=== PATIENT | female | born 1945 | race Caucasian/White ===

== ENCOUNTER 2020-04-18 10:10 | Outpatient (CLI) | payer MEDICARE, SELFPAY ==
[2020-04-18 10:36] LABS: Basophils Absolute Auto 0.1 K/mm3 (0.0-0.1); Basophils Percent Auto 0.7 % (0.2-1.2); Eosinophils Absolute Auto 0.4 K/mm3 (0-0.3); Eosinophils Percent Auto 5.1 % (0-4.4); Hematocrit 41.5 % (37.0-47.0); Hemoglobin 13.6 g/dL (12.0-15.0); Immature Granulocyte Absolute 0.01 K/mm3 (0.00-0.031); Immature Granulocyte Percent A 0.1 % (0-0.5); Lymphocytes Absolute Auto 2.08 K/mm3 (0.9-3.2); Lymphocytes Percent Auto 27.7 % (18.3-44.2); Mean Corpuscular HGB Conc 32.8 g/dl (32-36); Mean Corpuscular Hemoglobin 32.1 pg (26-34); Mean Corpuscular Volume 97.9 fl (80-100); Mean Platelet Volume 9.5 fl (7.4-10.4); Monocytes Absolute Auto 0.6 K/mm3 (0.1-0.6); Neutrophils Absolute Auto 4.4 K/mm3 (1.3-6.7); Neutrophils Percent Auto 58.4 % (45.5-73.1); Platelet Count Result 288 k/mm3 (150-375); Red Blood Count 4.24 M/mm3 (4.2-5.4); White Blood Count 7.5 K/mm3 (4.5-10.0)
[2020-04-18 10:49] LABS: Alanine Aminotransferase 26 U/L (4-35); Albumin Level 4.1 g/dL (3.5-5.1); Alkaline Phosphatase 87 U/L (38-126); Anion Gap 12.5 mmol/L (7-16); Aspartate Amino Transferase 35 U/L (14-36); Bilirubin,Total 0.4 mg/dL (0.2-1.3); Blood Urea Nitrogen 12 mg/dL (7-17); Calcium 8.9 mg/dL (8.4-10.2); Carbon Dioxide 26 mmol/L (22-30); Chloride 101 mmol/L (98-107); Cholesterol 110 mg/dL (0-200); Estimated Glomerular Filt Rate > 60; Glucose 109 mg/dL (65-105); HDL Direct 61 mg/dL; Potassium 4.5 mmol/L (3.4-5.0); Sodium 135 mmol/L (137-145); Triglycerides 66 mg/dL (<150)
[2020-04-18 11:00] LABS: LDL Cholesterol Direct 31 mg/dL
[2020-04-18 11:10] LABS: MALB Creatinine Ratio 16.2 mg/g (0-30); Microalbumin Urine Random 10.7 mg/L (0-16.7)
[2020-04-18 11:23] LABS: Vitamin D 25 Hydroxy 44.5 ng/mL
== END 2020-04-18 10:11 | disposition home or self-care (01) ==
LOC: ANHLAB 10:11
PROVIDERS: PCP Internal Medicine; Visit Provider Internal Medicine
DX: E55.9 Vitamin D deficiency, unspecified (principal); F41.1 Generalized anxiety disorder; I10 Essential (primary) hypertension; E78.5 Hyperlipidemia, unspecified
CPT/HCPCS: 36415; 80053; 80061; 82043; 82306; 84443; 85025

== ENCOUNTER → 2020-04-23 09:46 | Outpatient (CLI) | payer MEDICARE, SELFPAY ==
--- NOTE | ~2020-04-23 | MR_ITS ---
EXAMINATION: MR lumbar spine wo [facility] EXAM DATE: 04/23/2020 10:46 INDICATION: Low back pain. Compression fractures. TECHNIQUE: Multi-sequential, multiplanar MR images of the lumbar spine were obtained without contrast . Sagittal T1, T2, T2 fat saturation images. Axial T2 weighted images. Comparison is made to prior examination from 04/10/2019. FINDINGS: There is been interval vertebroplasty at previously seen L1 mild to moderate compression fr acture. Probable methyl methacrylate injection into right side of the sacrum as well. There has been interval development of moderate central compression of the L3 vertebral body, probably subacute give n the mild edema within this level. Mild loss of the L2, L4 and L5 vertebral bodies. Mild to moderate chronic anterior wedging of T11. Mild to moderate lower thoracic dextroscoliosis, lumbar levoscolios is. There is 6 mm anterolisthesis L5 on S1 without spondylolysis. Moderate to severe disc disease L4- 5 and L5-S1, moderate at the levels above. The conus medullaris terminates at the L2-3 level and has normal signal intensity and morphology. Level by level evaluation: T11-12: There is a mild diffuse disc bulge. Facet arthropathy: Mild. Neural foraminal stenosis: Mild left. Central canal stenosis: No stenosis. T12-L1: There is a mild diffuse disc bulge. Facet arthropathy: Mild. Neural foraminal stenosis: No stenosis. Central canal stenosis: No stenosis. L1-L2: There is a minimal diffuse disc bulge. Facet arthropathy: Mild. Neural foraminal stenosis: No stenosis. Central canal stenosis: No stenosis. L2-L3: There is a mild diffuse disc bulge. Facet arthropathy: Mild. Neural foraminal stenosis: Mild right. Central canal stenosis: No stenosis. L3-L4: There is a mild to moderate diffuse disc bulge. Facet arthropathy: Mild to moderate. Neural foraminal stenosis: Moderate right, mild to moderate left. Central canal stenosis: Mild. L4-L5: There is a mild diffuse disc bulge. Facet arthropathy: Mild. Neural foraminal stenosis: Moderate right, mild to moderate left. Central canal stenosis: No stenosis. L5-S1: There is a mild diffuse disc bulge. Facet arthropathy: Moderate. Neural foraminal stenosis: Moderate to severe bilateral. Central canal stenosis: Mild. Compared to last year, development of the L3 compression fracture. Interval treatment of the L1 compr ession fracture. Difficult to appreciate any significant interval change in spondylosis. IMPRESSION: 1. Subacute appearing L3 mild to moderate compression fracture. 2. Chronic, treated L1 compression fracture. 3. Moderate to severe lower lumbar disc disease and L5-S1 neural foraminal stenosis. 4. Lesser spondylosis other levels. Reviewed, dictated and finalized at location A. IMPRESSION: 1. Subacute appearing L3 mild to moderate compression fracture. 2. Chronic, treated L1 compression fracture. 3. Moderate to severe lower lumbar disc disease and L5-S1 neural foraminal brandon nosis. 4. Lesser spondylosis other levels.
== END ==
PROVIDERS: Visit Provider Nurse Practitioner Adult Health
DX: S32.000A Wedge compression fracture of unspecified lumbar vertebra, initial encounter for closed fracture (principal); M51.86 Other intervertebral disc disorders, lumbar region; M47.816 Spondylosis without myelopathy or radiculopathy, lumbar region
CPT/HCPCS: 72148

== ENCOUNTER → 2020-07-07 11:17 | Outpatient (CLI) | payer MEDICARE, SELFPAY ==
--- NOTE | ~2020-07-07 | XR_ITS ---
XR knee RT 2V, XR knee LT 2V 07/07/2020 11:52 Indication: Bilateral knee pain Procedure: 2 views each knee Comparison: No prior studies for comparison. Findings: No fracture or traumatic malalignment. No significant joint effusion. No radiopaque foreign bodies. There is chondrocalcinosis. There is mild osteoarthritis. 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 Reviewed, dictated and finalized at location B. 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
== END ==
PROVIDERS: PCP Orthopaedic Surgery
DX: M25.562 Pain in left knee (principal); M25.561 Pain in right knee; M17.0 Bilateral primary osteoarthritis of knee; M94.261 Chondromalacia, right knee; M94.262 Chondromalacia, left knee
CPT/HCPCS: 73560

== ENCOUNTER 2020-07-18 08:01 | Outpatient (CLI) | payer MEDICARE, SELFPAY ==
[2020-07-18 08:00] VITALS: PULSE 81; O2SAT 94
[2020-07-18 08:05] VITALS: PULSE 92; O2SAT 83
[2020-07-18 08:10] VITALS: PULSE 95; O2SAT 85
[2020-07-18 08:15] VITALS: O2SAT 87
[2020-07-18 08:20] VITALS: PULSE 97; O2SAT 90
[2020-07-18 08:45] VITALS: PULSE 82; O2SAT 94
--- NOTE | 2020-07-18 09:48 | HOMEO2EVAL ---
Home Oxygen Evaluation RC: Home Oxygen (O2) Evaluation Start: 07/18/20 09:43 Freq: Status: Active Protocol: RPE Activity Type Activity Date Activity User E-Sign Co-Sign Detail Recorded Client Recorded Date Recorded By Document 07/18/20 08:00 [email or web address] [id number] 07/18/20 09:48 DJO Document 07/18/20 08:05 [email or web address] [email or web address] 07/18/20 09:48 DJO Document 07/18/20 08:10 [email or web address] [email or web address] 07/18/20 09:48 DJO Document 07/18/20 08:15 [email or web address] [email or web address] 07/18/20 09:48 DJO Document 07/18/20 08:20 [email or web address] [email or web address] 07/18/20 09:48 DJO Document 07/18/20 08:45 [email or web address] [email or web address] 07/18/20 09:48 DJO 07/18/20 07/18/20 07/18/20 08:00 08:05 08:10 Home O2 Evaluation Test Phase Resting Exercise Exercise Oxygen Delivery Room Air Room Air Nasal Cannula Oxygen Flow Rate (L/min) 1 Pulse Oximetry (90-100 %) 94 83 L 85 L Pulse Rate (60-100 beats/min) 81 92 95 Ambulation Distance (feet) Treatment Charges O2 Evaluation 07/18/20 07/18/20 07/18/20 08:15 08:20 08:45 Home O2 Evaluation Test Phase Exercise Exercise Resting Oxygen Delivery Nasal Cannula Nasal Cannula Room Air Oxygen Flow Rate (L/min) 2 3 Pulse Oximetry (90-100 %) 87 L 90 94 Pulse Rate (60-100 beats/min) 97 82 Ambulation Distance (feet) 400 Treatment Charges
== END 2020-07-18 08:02 | disposition home or self-care (01) ==
PROVIDERS: PCP Internal Medicine; Visit Provider Internal Medicine Critical Care Medicine
DX: J44.9 Chronic obstructive pulmonary disease, unspecified (principal)
CPT/HCPCS: 94618

== ENCOUNTER → 2020-10-11 14:06 | Outpatient (CLI) | payer MEDICARE, SELFPAY ==
--- NOTE | ~2020-10-11 | XR_ITS ---
XR thoracic spine 3V DATE: 10/11/2020 14:43 INDICATION: Mid back pain TECHNIQUE: AP, lateral, swimmer views COMPARISON: 02/05/2019 CT thoracic spine 10/16/2017 thoracic spine FINDINGS: There is diffuse osteopenia. Numerous compression fracture deformities of the thoracic spine, most pronounced at T6, T7 and T8, in creased at T6 since 02/05/2019. There is a new anterior wedge compression fracture deformity at T11. Vertebroplasty is noted at L2. Moderate sized hiatal hernia. Cardiac megaly. Aortic calcification and ectasia. Bilateral hyperinflation with prominent central pulmonary artery suggesting COPD and pulmonary hypert ension. IMPRESSION: Multiple compression fracture deformities of the thoracic spine, increased at T6 and T11 since 02/05/2019 Interval vertebroplasty at L2 Prominent diffuse osteopenia is again noted COPD and pulmonary hypertension Hiatal hernia Reviewed, dictated and finalized at location A. SHADE MAKER IMPRESSION: Multiple compression fracture deformities of the thoracic spine, in creased at T6 and T11 since 02/05/2019 Interval vertebroplasty at L2 Prominent diffuse osteopenia is again noted COPD and pulmonary hypertension Hiatal hernia
== END ==
PROVIDERS: PCP Internal Medicine; Visit Provider Nurse Practitioner Adult Health
DX: M54.9 Dorsalgia, unspecified (principal); M48.54XA Collapsed vertebra, not elsewhere classified, thoracic region, initial encounter for fracture; Z98.1 Arthrodesis status; M85.88 Other specified disorders of bone density and structure, other site; J44.9 Chronic obstructive pulmonary disease, unspecified; I27.20 Pulmonary hypertension, unspecified; K44.9 Diaphragmatic hernia without obstruction or gangrene
CPT/HCPCS: 72072

== ENCOUNTER → 2020-10-18 11:48 | Outpatient (CLI) | payer MEDICARE, SELFPAY ==
--- NOTE | ~2020-10-18 | CT_ITS ---
EXAMINATION: CT thoracic spine wo con EXAM DATE: 10/18/2020 12:13 INDICATION: Back pain, thoracic . Multiple compression fractures. TECHNIQUE: Spiral CT thoracic spine wo con was performed without contrast. Axial, coronal and sagit montse images were reviewed. The dose-length product (DLP) for this examination was 243.52 mGy-cm. The exposure was tailored according to patient size (auto mA exposure control), and iterative reconstruc tion (ASIR) was used as additional dose reduction technique. There is no prior study for comparison. FINDINGS: There is mild progression of 3 previously seen mid thoracic fractures T6, T7 and T8. T6 no w has moderate loss of height and involvement of the posterior cortex, making it burst type fracture. Only 2 mm retropulsion at the superior endplate. T7 and T8 are mild to moderate compression fractures. There has been interval development of mild to moderate anterior wedging of T11, with large Schmorl's node at the inferior endplate. Interval develo pment of mild to moderate L1 compression fracture, which has been treated with methylmethacrylate inj ection. The vertebral bodies are aligned in the AP dimension. There is mild diffuse thoracic disc dis ease and facet arthropathy. Multilevel mild to moderate neural foraminal stenosis. No appreciable yoan tral canal stenosis. Paraspinal soft tissue is unremarkable. There is moderate sliding gastroesophageal hiatal hernia. Th ere is moderate to severe emphysema and hyperinflation. Scattered postinfectious residua within the l ungs. IMPRESSION: 1. T6 burst fracture. T7 and T8 compression fractures. Fractures present on prior study but have pro gressed. 2. Development of T11 and treated L1 compression fractures. 3. Mild to moderate spondylosis. 4. Mild lower thoracic dextroscoliosis. 5. Emphysema and hyperinflation. 6. Moderate hiatal hernia. Reviewed, dictated and finalized at location B. L DINING ROOM CASHIER IMPRESSION: 1. T6 burst fracture. T7 and T8 compression fractures. Fractures present on pr ior study but have progressed. 2. Development of T11 and treated L1 compression fractures. 3. Mild to moderate spondylosis. 4. Mild lower thoracic dextroscoliosis. 5. Emphysema and hyperinflation. 6. Moderate hiatal hernia.
== END ==
PROVIDERS: PCP Internal Medicine; Visit Provider Nurse Practitioner Adult Health
DX: M54.6 Pain in thoracic spine (principal); S22.061A Stable burst fracture of T7-T8 vertebra, initial encounter for closed fracture; M48.54XA Collapsed vertebra, not elsewhere classified, thoracic region, initial encounter for fracture; M47.814 Spondylosis without myelopathy or radiculopathy, thoracic region; M41.84 Other forms of scoliosis, thoracic region; J43.9 Emphysema, unspecified; R91.8 Other nonspecific abnormal finding of lung field; K44.9 Diaphragmatic hernia without obstruction or gangrene
CPT/HCPCS: 72128

== ENCOUNTER 2020-10-24 08:54 | Outpatient (CLI) | payer MEDICARE, SELFPAY ==
--- NOTE | ~2020-10-24 | NM_ITS ---
EXAMINATION: NM bone scan whole body DATE: 10/24/2020 12:55 INDICATION: Compression fracture of thoracic spine. TECHNIQUE: 23.6 mCi Tc-99m HDP was administered intravenously. Delayed whole-body scintigrams were o btained. COMPARISON: Thoracic spine CT 10/18/2020, 02/05/19 FINDINGS: There is joint-centered increased activity in the hands, elbows, and hips without radiograp hic comparison, likely osteoarthritis. There is disc- and joint-centered increased activity in the sp ine correlating with spondylosis by CT. There is increased activity in T6 vertebral body correlating with a burst fracture by CT. IMPRESSION: 1. Increased activity in T6 vertebral body correlating with a burst fracture by CT, likely subacute o r chronic. Reviewed, dictated and finalized at location A. SETTER APPRENTICE IMPRESSION: 1. Increased activity in T6 vertebral body correlating with a burst fracture by CT, likely subacute or chronic.
== END 2020-10-24 08:55 | disposition home or self-care (01) ==
PROVIDERS: PCP Internal Medicine; Visit Provider Nurse Practitioner Adult Health
DX: S22.000A Wedge compression fracture of unspecified thoracic vertebra, initial encounter for closed fracture (principal); X58.XXXA Exposure to other specified factors, initial encounter
CPT/HCPCS: 78306; A9561

== ENCOUNTER → 2020-10-29 06:48 | Outpatient (CLI) | payer MEDICARE, SELFPAY ==
[2020-10-29 22:53] LABS: SARS-CoV-2 RNA PCR Negative
== END ==
PROVIDERS: PCP Internal Medicine; Visit Provider Pain Medicine Pain Medicine
DX: Z01.812 Encounter for preprocedural laboratory examination (principal); Z20.822 Contact with and (suspected) exposure to COVID-19
CPT/HCPCS: C9803; U0003; U0005

== ENCOUNTER → 2020-11-09 07:29 | Outpatient (CLI) | payer MEDICARE, SELFPAY ==
--- NOTE | ~2020-11-09 | XR_ITS ---
EXAMINATION: XR thoracic spine 3V EXAM DATE: 11/09/2020 08:41 INDICATION: Thoracic back pain. TECHNIQUE: Frontal and lateral projections of the thoracic spine as well as lateral swimmers projecti on of the upper thoracic spine for interpretation. Comparison is made to prior examination from 2020. FINDINGS: Bones are osteopenic. Please note that osteopenia limits sensitivity for detecting fractu res by radiographs. In there are multiple mild to moderate thoracic compression fractures, a mid-leve l has been injected with methylmethacrylate, and also a thoracolumbar level. There is mild to moderat e lower thoracic extra scoliosis. Right upper lobe granuloma. Small to moderate gastroesophageal hiat al hernia. IMPRESSION: 1. Multiple thoracolumbar mild to moderate compression fractures. 2. Osteopenia. Reviewed, dictated and finalized at location B. RETE PLANT LABORER
--- NOTE | ~2020-11-09 | XR_ITS ---
EXAMINATION: [id number]_CR DATE: 11/09/2020 08:41 INDICATION: Painful knot at the lateral right ribs and anterior bilateral lower rib pain post recent vertebroplasty. TECHNIQUE: A frontal inspiratory view of the chest and 3 views of the left ribs and 3 views of the ri ght ribs ribs were obtained. COMPARISON: Chest CT dated 12/27/2016 FINDINGS: Old healed lateral left 10th rib fracture. More recent-appearing minimally displaced anterior right f ifth and sixth rib fractures and minimally displaced anterior left fifth rib fracture. Hyperexpansion of lungs with increased lucency and architectural distortion in the upper lung zones c onsistent with severe emphysema better appreciated on prior CT. A few scattered calcified pulmonary n odules and calcified left hilar lymph nodes consistent with old granulomatous disease. Linear discoid atelectasis/scarring in the right upper lung zone. No other airspace opacities, pulmonary edema, ple ural effusion or pneumothorax. Or mediastinal silhouette is normal. Moderate-sized sliding-type hiata l hernia. Methylmethacrylate for prior vertebroplasty is in the midthoracic spine, at the right side of L1 L3. Additional methylmethacrylate at the right sacral ala. IMPRESSION: 1. Relatively recent-appearing minimally displaced rib fractures at the anterior right fifth and sixt h and anterior left fifth ribs. 2. No pneumothorax or other acute cardiopulmonary disease. 3. Emphysema. 4. Moderate-sized hiatal hernia. Reviewed, dictated and finalized at location A. SS CONSULTANT IMPRESSION: 1. Relatively recent-appearing minimally displaced rib fractures at the anterio r right fifth and sixth and anterior left fifth ribs. 2. No pneumothorax or other acute cardiopulmonary disease. 3. Emphysema. 4. Moderate-sized hiatal hernia.
== END ==
PROVIDERS: PCP Internal Medicine; Visit Provider Nurse Practitioner Adult Health
DX: S22.41XA Multiple fractures of ribs, right side, initial encounter for closed fracture (principal); R07.81 Pleurodynia; M54.6 Pain in thoracic spine; M85.88 Other specified disorders of bone density and structure, other site; J43.9 Emphysema, unspecified; K44.9 Diaphragmatic hernia without obstruction or gangrene
CPT/HCPCS: 71111; 72072

== ENCOUNTER 2021-01-23 14:34 | Outpatient (CLI) | payer MEDICARE, SELFPAY ==
--- NOTE | 2021-01-23 14:48 | ECHO_ITS ---
Patient Info Name: Morteza Apple Age: 75 years : 1945 Gender: Female Ht: 63 in Wt: 89 lbs BSA: 1.33 m2 HR: 74 bpm BP: 148 / 63 mmHg Heart Rhythm: Sinus Rhythm Technical Quality: Good Exam Date: 01/23/2021 2:52 PM Exam Location: [facility] Patient Status: Outpatient Admit Date: 01/23/2021 Staff Ordering Physician: Luiz Wang APRN Job Press Operator: Melissa Jaffe RDCS Attending Provider: Luiz Wang APRN Referring Physician: Felipe HILL; Exam Type: CA echo doppler color flow Study Info Indications R06.02 - Shortness of breath Complete two-dimensional, color flow and Doppler transthoracic echocardiogram is performed. Summary 1. Complete two-dimensional, color flow and Doppler transthoracic echocardiogram is performed. 2. Left ventricular chamber dimension is normal. 3. Left ventricular systolic function is mildly reduced, estimated at 50-55%. 4. There is no increased left ventricular wall thickness. 5. The left ventricular diastolic function is grade I diastolic dysfunction. 6. Left atrial chamber dimension is mildly enlarged. 7. There is mild mitral valve regurgitation. 8. There is mild to moderate tricuspid valve regurgitation. 9. Moderate pulmonary hypertension, estimated pulmonary arterial systolic pressure is 46 mmHg. 10. Atrial septum is aneurysmal. Left Ventricle Left ventricular chamber dimension is normal. Left ventricular systolic function is mildly reduced, estimated at 50-55%. There is no increased left ventricular wall thickness. The left ventricular diastolic function is grade I diastolic dysfunction. Right Ventricle Right ventricular chamber dimension is normal. Right ventricular systolic function is normal. Left Atria Left atrial chamber dimension is mildly enlarged. Right Atria Right atrial chamber dimension is normal. Aortic Valve The aortic valve is trileaflet. There is mild aortic valve sclerosis. There is no aortic valve stenosis. There is trace aortic valve regurgitation. Pulmonic Valve The pulmonic valve is normal. There is no pulmonic valve stenosis. There is trace pulmonic regurgitation. Mitral Valve The mitral valve has normal leaflets. There is no mitral valve stenosis. There is mild mitral valve regurgitation. Tricuspid Valve The tricuspid valve leaflets are normal. There is no significant tricuspid valve stenosis. There is mild to moderate tricuspid valve regurgitation. Moderate pulmonary hypertension, estimated pulmonary arterial systolic pressure is 46 mmHg. Other Findings Atrial septum is aneurysmal. Pericardium/Pleural The pericardium appears normal. There is trivial pericardial effusion. Inferior Vena Cava Dilated inferior vena cava with <50% collapse upon inspiration consistent with normal right atrial pressure, 10 mmHg. Aorta The aortic root size at the sinus of Valsalva is normal. The prox ascending aorta size is normal. Left Ventricular Outflow Tract Name Value Normal LVOT 2D LVOT Diameter 2.0 cm LVOT Doppler LVOT Peak Gradient 2 mmHg LVOT Mean Gradient
== END 2021-01-23 14:35 | disposition home or self-care (01) ==
LOC: ANHCARD 14:37
PROVIDERS: PCP Internal Medicine; Visit Provider Nurse Practitioner Family
DX: R06.02 Shortness of breath (principal); I72.8 Aneurysm of other specified arteries; I27.20 Pulmonary hypertension, unspecified; I08.1 Rheumatic disorders of both mitral and tricuspid valves
CPT/HCPCS: 93306

== ENCOUNTER → 2021-05-29 15:29 | Outpatient (CLI) | payer MEDICARE, SELFPAY ==
--- NOTE | ~2021-05-29 | XR_ITS ---
XR hip LT 2V w AP pelvis DATE: 05/29/2021 17:00 INDICATION: Left hip pain TECHNIQUE: AP pelvis. Standing AP and lateral views of left hip COMPARISON: 12/12/2017 left hip FINDINGS: Diffuse osteopenia. There is moderate osteoarthritic change at both hip joints. No fracture or dislocation, avascular nec rosis or bone destruction of the left hip is detected. The pubic symphysis and sacroiliac joints appear intact. IMPRESSION: Osteopenia Moderate osteoarthritic change at the hip joints Reviewed, dictated and finalized at location A.
--- NOTE | ~2021-05-29 | XR_ITS ---
XR lumbar spine 6V w bending DATE: 05/29/2021 17:00 INDICATION: Low back pain, left hip pain TECHNIQUE: AP, lateral, bilateral oblique and coned lateral lumbosacral views COMPARISON: 04/10/2019 lumbar spine FINDINGS: There is prominent diffuse osteopenia. There is dextroscoliosis of the lower thoracic and lumbar spine. Status post vertebroplasty at L1 and L3 since 04/10/2019. Compression fracture deformities of L4 and L5. Methylmethacrylate is again noted at the right sacral area. The sacroiliac joints are intact. There is extensive calcification of the abdominal aorta without apparent aneurysm. IMPRESSION: Status post vertebroplasty at L1 and L3 since 04/10/2019 Diffuse osteopenia, multiple compression fracture deformities Reviewed, dictated and finalized at location A.
--- NOTE | ~2021-05-29 | XR_ITS ---
XR thoracic spine 2V DATE: 05/29/2021 17:00 INDICATION: Thoracic and low back pain TECHNIQUE: Standing AP, lateral and swimmer views COMPARISON: 11/09/2020 thoracic spine 05/29/2021 lumbar spine FINDINGS: There is prominent diffuse osteopenia. There is mild levoscoliosis of the upper thoracic spine and dextro scoliosis of the lower thoracic sp ine. Status post vertebroplasty at T6 and L1. There are multiple stable compression fracture deformities including T7, T8 and T11. IMPRESSION: Diffuse osteopenia and multiple stable compression fractures of the thoracic spine Status post vertebroplasty at T6 and L1 again noted Reviewed, dictated and finalized at location A.
== END ==
PROVIDERS: Visit Provider Nurse Practitioner Adult Health
DX: M54.5 Low back pain (principal); M25.552 Pain in left hip; M54.6 Pain in thoracic spine; M16.0 Bilateral primary osteoarthritis of hip; Z98.1 Arthrodesis status; M85.88 Other specified disorders of bone density and structure, other site; M48.54XA Collapsed vertebra, not elsewhere classified, thoracic region, initial encounter for fracture
CPT/HCPCS: 72070; 72114; 73502

== ENCOUNTER → 2021-12-26 08:42 | Outpatient (CLI) | payer MEDICARE, SELFPAY ==
--- NOTE | ~2021-12-26 | XR_ITS ---
EXAMINATION: XR thoracic spine 2V EXAM DATE: 12/26/2021 09:45 INDICATION: Back pain, thoracic TECHNIQUE: Frontal and lateral projections of the thoracic spine as well as lateral swimmers projecti on of the upper thoracic spine for interpretation. Comparison is made to prior examination from 2020. FINDINGS: There is moderate mid thoracic compression/burst fracture which has been treated with meth ylmethacrylate. Mild to moderate loss of the vertebral body heights at the 2 levels below this unchan ged. There is also mild to moderate anterior wedging of lower thoracic vertebral body which could be T11 unchanged. Bones appear osteopenic. Probable moderate-sized gastroesophageal hiatal hernia. There is aortic arteriosclerosis. Right upper lobe granuloma. IMPRESSION: 1. Chronic thoracic compression and burst fractures unchanged. 2. Osteopenia. Reviewed, dictated and finalized at location B.
--- NOTE | ~2021-12-26 | XR_ITS ---
EXAMINATION: XR lumbar spine 2-3V DATE: 12/26/2021 09:45 INDICATION: Lumbar spondylosis TECHNIQUE: Anteroposterior and lateral views of the lumbar spine, and cone-down lateral view of the l umbosacral junction were obtained. COMPARISON: 05/29/2021 FINDINGS: There are 18 degrees of lumbar levoscoliosis. Compression fractures of L1 and L3 with verte broplasty change are stable. No acute fracture is identified although sensitivity is limited by osteo penia. Bone alignment is normal. There is severe loss of intervertebral disc space height at L4-5 sub mitted material is also noted in the right sacrum. And L5-S1. Calcified atherosclerosis is noted. IMPRESSION: 1. Severe lumbar spondylosis and vertebroplasty change without acute osseous abnormality identified, sensitivity limited by osteopenia. Reviewed, dictated and finalized at location A. IMPRESSION: 1. Severe lumbar spondylosis and vertebroplasty change without acute osseous ab normality identified, sensitivity limited by osteopenia.
== END ==
PROVIDERS: PCP Internal Medicine; Visit Provider Nurse Practitioner Adult Health
DX: S22.001A Stable burst fracture of unspecified thoracic vertebra, initial encounter for closed fracture (principal); M47.815 Spondylosis without myelopathy or radiculopathy, thoracolumbar region; I70.0 Atherosclerosis of aorta
CPT/HCPCS: 72070; 72100